=== PATIENT | male | born 1970 | race Caucasian/White ===

== ENCOUNTER 2017-08-29 11:57 | Emergency (ER) | payer SELFPAY ==
[~2017-08-29] VITALS: Ht 172.7 cm; Wt 70.0 kg
[2017-08-29 12:08] VITALS: BP 141/90; PULSE 112; RESP 18; TEMP 98.8; O2SAT 99
[2017-08-29] MEDS ORDERED: [UNRECOGNIZED DRUG - REMARK] (12:27)
[2017-08-29] MEDS ORDERED: SODIUM CHLORIDE 0.9% FLUSH 10 ML FLUSH IV FLUSH PRN (13:15)
--- NOTE | 2017-08-29 13:15 | PD ---
HPI . Back pain Chief Complaint: Back/ Neck Pain or Injury Time Seen by Provider: 12:41 Travel History International Travel<30 days: No Contact w/Intl Traveler<30days: No Traveled to known affect area: No History of Present Illness HPI Patient presents with the chief complaint of right low back pain. Onset 2 days ago. Severity 2/10. No modifying factors. It seems that the real reason why this patient here is because of alcoholism. This history is obtained from his . She states that he is trying to stop drinking and has been going through "DTs." She states that the symptoms have been mild. However, she is concerned because he is not eating very much. He is having difficulty with bowel movements. He is constipated. His bowel movements hurt his anus. And, his urine output is diminished. The last drink per the patient was 1 week ago. The last drink per the was 2 days ago. He states that he drinks vodka. PFSH Social History Tobacco Use: No Allergies-Medications (Allergen,Severity, Reaction): Coded Allergies: No Known Allergies (Unverified , 08/29/17) Reported Meds & Prescriptions Reported Meds & Active Scripts Active Reported [allergy meds] Review of Systems Except as stated in HPI: all other systems reviewed are Neg Gastrointestinal: Positive: Constipation, Loss of Appetite, No: Nausea, Vomiting, Diarrhea, Abdominal Pain Genitourinary: Positive: Decreased Urinary Output Psychiatric: Positive: Substance Abuse Physical Exam Narrative GENERAL: Thin man who is in no acute distress. SKIN: warm/dry. Normal color and turgor. HEAD: Normocephalic. Atraumatic. EYES: Pupils equal and round. No scleral icterus. No injection or drainage. ENT: No nasal bleeding or discharge. Mucous membranes pink and moist. NECK: Trachea midline. Full range of motion without pain.. CARDIOVASCULAR: Regular rate and rhythm. RESPIRATORY: No accessory muscle use. Clear to auscultation. Breath sounds equal bilaterally. GASTROINTESTINAL: Abdomen soft. Nontender. Bowel sounds present. Nondistended. MUSCULOSKELETAL: No obvious deformities. NEUROLOGICAL: Awake and alert. No obvious cranial nerve deficits. Motor grossly within normal limits. Normal speech. No tremors noted. PSYCHIATRIC: Appropriate mood and affect; insight and judgment normal. Data Data Last Documented VS Vital Signs Date Time Temp Pulse Resp B/P (MAP) Pulse Ox O2 Delivery O2 Flow Rate FiO2 08/29/17 13:14 18 08/29/17 12:08 98.8 112 141/90 (107) 99 Orders Orders Complete Blood Count With Diff (08/29/17 13:02) Comprehensive Metabolic Panel (08/29/17 13:02) Lipase (08/29/17 13:02) Urinalysis - C+S If Indicated (08/29/17 13:02) Abdomen, Flat & Upright (08/29/17 ) Iv Access Insert/Monitor (08/29/17 13:02) Sodium Chloride 0.9% Flush (Ns Flush) (08/29/17 13:15) Sodium Chlor 0.9% 1000 Ml Inj (Ns 1000 M (08/29/17 13:45) Magnesium (Mg) (08/29/17 13:52) Potassium Chloride (Kcl) (08/29/17 14:15) Labs Laboratory Tests Test 08/29/17 13:09 White Blood Count 7.3 TH/MM3 Red Blood Count 3.72 MIL/MM3 Hemoglobin 14.0 GM/DL Hematocrit 40.1 % Mean Corpuscular Volume 107.8 FL Mean Corpuscular Hemoglobin 37.8 PG Mean Corpuscular Hemoglobin Concent 35.1 % Red Cell Distribution Width 15.3 % Platelet Count 164 TH/MM3 Mean Platelet Volume 9.0 FL Neutrophils (%) (Auto) 76.1 % Lymphocytes (%) (Auto) 11.7 % Monocytes (%) (Auto) 10.7 % Eosinophils (%) (Auto) 1.0 % Basophils (%) (Auto) 0.5 % Neutrophils # (Auto) 5.5 TH/MM3 Lymphocytes # (Auto) 0.9 TH/MM3 Monocytes # (Auto) 0.8 TH/MM3 Eosinophils # (Auto) 0.1 TH/MM3 Basophils # (Auto) 0.0 TH/MM3 CBC Comment DIFF FINAL Differential Comment Urine Color LIGHT-BROWN Urine Turbidity HAZY Urine pH 6.5 Urine Specific [place] 1.035 Urine Protein 100 mg/dL Urine Glucose (UA) 70 mg/dL Urine Ketones TRACE mg/dL Urine Occult Blood NEG Urine Nitrite NEG Urine Bilirubin NEG Urine Urobilinogen 8.0 MG/DL Urine Leukocyte Esterase NEG Urine RBC 2 /hpf Urine WBC 4 /hpf Urine Squamous Epithelial Cells 2 /hpf Urine Mucus MANY /lpf Microscopic Urinalysis Comment CULT NOT INDICATED Blood Urea Nitrogen 8 MG/DL Creatinine 0.72 MG/DL Random Glucose 135 MG/DL Total Protein 7.7 GM/DL Albumin 4.2 GM/DL Calcium Level 9.3 MG/DL Alkaline Phosphatase 114 U/L Aspartate Amino Transf (AST/SGOT) 230 U/L Alanine Aminotransferase (ALT/SGPT) 199 U/L Total Bilirubin 1.6 MG/DL Sodium Level 137 MEQ/L Potassium Level 2.7 MEQ/L Chloride Level 97 MEQ/L Carbon Dioxide Level 26.6 MEQ/L Anion Gap 13 MEQ/L Estimat Glomerular Filtration Rate 117 ML/MIN Magnesium Level 1.6 MG/DL Lipase 724 U/L [facility] Medical Decision Making Medical Screen Exam Complete: Yes Emergency Medical Condition: Yes Differential Diagnosis Differential diagnosis of flank pain includes but is not limited to kidney stone , pyelonephritis, musculoskeletal pain, PE Narrative Course This is an alcoholic patient who presents with a chief complaint of atraumatic right low back pain. He is also constipated, has had a poor appetite and has had decreased urinary output. He is not in DTs currently. He is lucid with no tremors. I will check a CBC, CMP, UA and flat and upright of the abdomen. CBC & BMP Diagram 08/29/17 13:09 Total Protein 7.7, Albumin 4.2, Calcium Level 9.3, Alkaline Phosphatase 114, Aspartate Amino Transf (AST/SGOT) 230 H, Alanine Aminotransferase (ALT/SGPT) 199 H, Total Bilirubin 1.6 H A magnesium level has been added. Potassium has been replaced orally. Magnesium level is normal at 1.6. UA is negative for infection. He is not having any abdominal pain. Last Impressions Abdomen X-Ray 08/29/17 0000 Signed Impressions: CONCLUSION: No evidence of bowel traction. No evidence of stones. The x-ray was independently reviewed by me. Diagnosis Primary Impression: Alcohol abuse Additional Impressions: Elevated lipase Transaminitis Hypokalemia Patient Instructions: Abuse of Alcohol (DC), General Instructions Additional Instructions: Follow-up at [facility] if you need help with your alcohol abuse Disposition: 01 DISCHARGE HOME Condition: Stable Sasha Burgess MD Aug 29, 2017 13:15
[2017-08-29 13:17] LABS: AUTOMATED NEUTROPHIL # 5.5 TH/MM3 (1.8-7.7); BASOPHIL % 0.5 % (0.0-2.0); EOSINOPHIL # 0.1 TH/MM3 (0-0.4); HEMATOCRIT 40.1 % (39.0-51.0); LYMPH % 11.7 % (9.0-44.0); LYMPHOCYTE # 0.9 TH/MM3 (1.0-4.8); MEAN CELL VOLUME 107.8 FL (80.0-100.0); MEAN CORPUSCULAR HEMOGLOBIN 37.8 PG (27.0-34.0); MEAN CORPUSCULAR HGB CONC 35.1 % (32.0-36.0); MONO % 10.7 % (0.0-8.0); MONOCYTE # 0.8 TH/MM3 (0-0.9); NEUT % 76.1 % (16.0-70.0); PLATELET COUNT 164 TH/MM3 (150-450); RED BLOOD COUNT 3.72 MIL/MM3 (4.50-5.90); RED CELL DISTRIBUTION WIDTH 15.3 % (11.6-17.2); WHITE BLOOD COUNT 7.3 TH/MM3 (4.0-11.0)
[2017-08-29 13:29] LABS: BLOOD, URINE NEG (NEG); GLUCOSE,URINE 70 mg/dL (NEG); KETONE, URINE TRACE mg/dL (NEG); MUCUS URINE MANY /lpf (OCC); NITRITE,URINE NEG (NEG); PH, URINE 6.5 (5.0-8.5); SQUAMOUS EPITHELIAL CELL URINE 2 /hpf (0-5); URINE LEUKOCYTE ESTERASE NEG (NEG)
[2017-08-29 13:31] LABS: BILIRUBIN, URINE NEG (NEG); URINE COLOR LIGHT-BROWN (YELLW/STRAW)
--- NOTE | 2017-08-29 13:34 | RADRPT ---
EXAM DATE: 08/29/2017 1:27 PM EDT AGE/SEX: 47 years / Male INDICATIONS: Abdominal cramps for 2 days and pain in right flank. CLINICAL DATA: This is the patient's initial encounter. Patient reports that signs and symptoms have been present for 2 days and indicates a pain score of 4/10. MEDICAL/SURGICAL HISTORY: None. None. COMPARISON: No prior [facility] exams available for comparison. FINDINGS: Supine and upright views of the abdomen were performed. The abdominal bowel gas pattern is normal. No air-fluid levels are seen. No abnormal masses, calcifications, or organomegaly is seen. The visualiz ed lower lungs are clear. No evidence of free intraperitoneal gas. The osseous structures are unremar kable. CONCLUSION: No evidence of bowel traction. No evidence of stones. Electronically signed by: China Schaffer MD 08/29/2017 1:33 PM EDT
[2017-08-29 13:45] LABS: ALBUMIN 4.2 GM/DL (3.4-5.0); ALKALINE PHOSPHATASE 114 U/L (45-117); ALT (GPT) 199 U/L (12-78); AST (GOT) 230 U/L (15-37); BICARBONATE 26.6 MEQ/L (21.0-32.0); BLOOD UREA NITROGEN 8 MG/DL (7-18); CALCIUM 9.3 MG/DL (8.5-10.1); CHLORIDE 97 MEQ/L (98-107); CREATININE 0.72 MG/DL (0.60-1.30); GLOMERULAR FILTRATION RATE 117 ML/MIN (>89); GLUCOSE,RANDOM 135 MG/DL (74-106); SODIUM (NA) 137 MEQ/L (136-145); TOTAL BILIRUBIN ADULT 1.6 MG/DL (0.2-1.0); TOTAL PROTEIN 7.7 GM/DL (6.4-8.2)
[2017-08-29] MEDS ORDERED: SODIUM CHLOR 0.9% 1000 ML INJ 1,000 ML IV ONE (13:45)
[2017-08-29] MEDS ORDERED: POTASSIUM CHLORIDE 20 MEQ CONTROLLED RELEASE TAB PO ONE (14:15)
== END 2017-08-29 14:35 | disposition home or self-care (01) ==
LOC: NEPD 11:57
DX: F10.20 Alcohol dependence, uncomplicated (principal); R74.8 Abnormal levels of other serum enzymes; R74.0 Nonspecific elevation of levels of transaminase and lactic acid dehydrogenase [LDH]; E87.6 Hypokalemia
CPT/HCPCS: 74019; 80053; 81001; 83690; 83735; 85025; 96360; 99284; J7030